=== PATIENT | female | born 1980 | race Caucasian/White ===

== ENCOUNTER 2016-12-16 09:09 | Outpatient (CLI) | payer OTHER ==
[2016-12-16 10:37] LABS: #Eosinphils 0.1 thou/uL (0.0-0.7); #Lymphocytes 2.3 thou/uL (1.20-3.40); #Monocytes 0.8 thou/uL (0.11-0.59); #Neutrophils 6.4 thou/uL (1.40-6.50); %Basophils 0.3 % (0.0-1.0); %Eosinophils 0.7 % (0.0-10.0); %Lymphocytes 24.2 % (21.0-51.0); %Monocytes 7.8 % (0.0-10.0); Hematocrit 41.3 % (36.0-47.0); Mean Platelet Volume 8.1 fL (7.4-10.4); Red Blood Cell (RBC) Count 4.32 mill/uL (4.20-5.40); White Blood Cell (WBC) Count 9.6 thou/uL (4.8-10.8)
[2016-12-16 11:02] LABS: ALT (SGPT) 31 U/L (8-55); AST (SGOT) 32 U/L (5-34); Alkaline Phosphatase 72 U/L (40-150); Anion Gap 10 mmol/L (10-20); BUN (Urea Nitrogen) 13 mg/dL (7.0-18.7); Bilirubin, Direct 0.3 mg/dL (0.1-0.3); Bilirubin, Total 0.5 mg/dL (0.2-1.2); Calc. Creatinine Clearance 0 mL/min (70-130); Calcium 9.1 mg/dL (7.8-10.44); Carbon Dioxide 28 mmol/L (22-29); Chloride 102 mmol/L (98-107); Estimated GFR-MDRD Greater than 90; Globulin 3.2 g/dL (2.4-3.5); Protein, Total 7.3 g/dL (6.0-8.3)
--- NOTE | 2016-12-16 14:05 | RAD ---
PA AND LATERAL VIEWS OF CHEST: Date: 12/16/16 HISTORY: Preoperative evaluation. FINDINGS: The heart size is normal. The lungs are well expanded without focal areas of consolidation, pneumoth orax, or pleural effusions. No acute osseous abnormalities are seen. IMPRESSION: No radiographic evidence of acute cardiopulmonary process. POS: [facility]
--- NOTE | 2016-12-19 15:59 | EKG ---
Test Reason : Blood Pressure : / mmHG Vent. Rate : 069 BPM Atrial Rate : 069 BPM P-R Int : 150 ms QRS Dur : 096 ms QT Int : 406 ms P-R-T Axes : 041 030 027 degrees QTc Int : 435 ms Normal sinus rhythm Cannot rule out Anterior infarct , age undetermined Abnormal ECG No previous ECGs available Confirmed by BRIANA GRANT ([id number]) on 12/19/2016 3:59:28 PM Referred By: LIZZETH Confirmed By:BRIANA GRANT
== END 2016-12-16 09:10 | disposition home or self-care (01) ==
LOC: LABBT 09:09
PROVIDERS: ATTEND Surgery
DX: Z01.818 Encounter for other preprocedural examination (principal); E66.01 Morbid (severe) obesity due to excess calories
CPT/HCPCS: 71020; 80053; 80076; 83036; 84703; 85025; 93005; 93010

== ENCOUNTER 2016-12-16 09:15 | Inpatient (IN) | payer OTHER ==
[2016-12-16 09:36] VITALS: BMI 42.9
[2016-12-26] MEDS ORDERED: Bupivacaine 0.25% HCL 30 ML VIAL ONE (06:37)
[2016-12-26] MEDS ORDERED: Lidocaine 2% w/Epinephrine 1:200K 20 ML VIAL ONE (06:37)
[2016-12-26] MEDS ORDERED: CEFAZOLIN/Water 2 GM/20 ML SYRINGE ONE (06:50)
[2016-12-26] MEDS ORDERED: Heparin 5,000 UNITS/ML VIAL ONE (06:50)
[2016-12-26] MEDS ORDERED: Ketorolac Tromethamine 30 MG/ML VIAL ONE (07:00)
[2016-12-26] MEDS ORDERED: Scopolamine 1.5 mg/72 hour Patch ONE (07:00)
[2016-12-26] MEDS ORDERED: Fentanyl 250 MCG/5 ML VIAL ONE (07:14)
[2016-12-26] MEDS ORDERED: Dexamethasone 20 MG/5 ML VIAL ONE (07:36)
[2016-12-26] MEDS ORDERED: Propofol 200 MG/20 ML VIAL ONE (07:36)
[2016-12-26] MEDS ORDERED: Lidocaine 2% PF 10 ML AMP (For Epidural Use) ONE (07:36)
[2016-12-26] MEDS ORDERED: Glycopyrrolate 0.2 MG/ML 5 ML SYRINGE ONE (07:36)
[2016-12-26] MEDS ORDERED: Esmolol 100 MG/10 ML VIAL ONE (07:36)
[2016-12-26] MEDS ORDERED: Promethazine HCl 25 MG/ML VIAL ONE (09:41)
[2016-12-26] MEDS ORDERED: Promethazine HCl 25 MG/ML VIAL IM PRN ×2 (09:48→11:27)
[2016-12-26] MEDS ORDERED: Ketorolac Tromethamine 30 MG/ML VIAL IVP PRN (09:48)
[2016-12-26] MEDS ORDERED: diphenhydrAMINE 50 MG/ML VIAL IVP PRN ×2 (09:48→11:27)
[2016-12-26] MEDS ORDERED: Fentanyl 5000 MCG/250 ML CADD IVPB PRN (09:48)
[2016-12-26] MEDS ORDERED: Zolpidem Tartrate 5 MG TAB PO PRN (09:48)
[2016-12-26] MEDS ORDERED: diphenhydrAMINE 25 MG CAP PO PRN (09:48)
[2016-12-26] MEDS ORDERED: Ondansetron HCl/PF 4 MG/2 ML Vial IVP PRN ×2 (09:48→11:27)
[2016-12-26] MEDS ORDERED: Naloxone HCl 0.4 mg/ml Vial IV PRN (09:48)
[2016-12-26] MEDS ORDERED: diphenhydrAMINE 50 MG/ML VIAL IM PRN (09:48)
[2016-12-26] MEDS ORDERED: Communication Order-Pharmacy FS SCH (10:00)
--- NOTE | 2016-12-26 11:21 | OP ---
DATE OF PROCEDURE: 12/26/2016 PREOPERATIVE DIAGNOSIS: Morbid obesity with body mass index of 44. POSTOPERATIVE DIAGNOSES: Morbid obesity with body mass index of 44 and paraesophageal hiatal hernia . PROCEDURES: 1. Laparoscopic sleeve gastrectomy. 2. Laparoscopic repair of paraesophageal hiatal hernia without fundoplication. 3. Esophagogastroduodenoscopy. SURGEON: Martin New M.D. ANESTHESIA: General. ESTIMATED BLOOD LOSS: Minimal. COMPLICATIONS: None. SPECIMEN: Stomach. FINDINGS: Small pairs of esophageal hiatal hernia. INDICATION: The patient is a 36-year-old female who presents a long history of being overweight. H er body mass index is 44. She has attended our preoperative seminar and preoperative education clas ses and met with the dietitian. She understands risks, benefits particular to sleeve as well as alt ernative procedures for weight loss. She gives consent. TECHNIQUE: The patient was taken to the operating room and placed supine on the table. After gener al anesthetic was obtained, arms and legs were double strapped to bariatric table. OG tube was used to decompress the stomach. Abdomen is prepped and draped in a sterile fashion. Left subcostal 5-m m Optiview trocar was placed in the usual fashion and high-flow pneumoperitoneum was obtained. The 12-mm ports were placed in the left and right of the umbilicus. A 5 mm port was placed in right sub costal. High-flow pneumoperitoneum was obtained. Subxiphoid 5-mm port is placed and then removed a nd a Nathansen was used to raise the liver off the GE junction. The patient was found to have a sma ll paraesophageal hiatal hernia. Short gastrics were taken down from midbody of stomach to the left renaldo of the diaphragm using LigaSure, was taken down to a distance of 6 cm proximal to the pylorus. All posterior adhesions were taken down. The left renaldo is fully dissected as was the angle of His , exposing a paraesophageal hiatal hernia. The bare area was opened in the gastrohepatic ligament. A replaced right hepatic artery was seen and excluded from the dissection. Circumferential dissect ion of the esophagus was performed into the mediastinum allowing the fundus to be brought back into the abdominal cavity under no tension. An Ethibond suture was used to close the crura posteriorly a fter the 38 bougie was placed. The tie knot system used to affix the suture. This closure of the e sophageal hiatus was not too tight. Multiple loads of an [place] stapling device were used to form the sleeve. The first was a green load fired up at a distance of 6 cm proximal to the pylorus angle d up towards the incisura. Multiple loads were then fired up along the bougie and stomach was compl etely transected at the angle of His. The stomach was removed from left abdominal incision, this fa scial defect using GraNee needle 0 Vicryl tie. EGD scope was passed via the esophagus, stomach to t he level of the duodenum without obstruction, no evidence of leakage of air through the staple line, no evidence of involvement of the GE junction with norma. No evidence of stricture at the incisu ra. EGD scope was used to decompress the stomach, pulled and removed. The Nathansen retractor tamie bradley under direct visualization without injury or bleeding. All port sites were infiltrated using lo mala anesthetic and removed without bleeding. Pneumoperitoneum was let down. Vicryl was used to vidhi se the fascial defect from left abdominal incisions. All incisions were irrigated and closed using 4-0 Monocryl and Dermabond. The patient was en route to recovery in stable condition. All instrume nt counts, needle counts, and lap counts were correct.
[2016-12-26] MEDS ORDERED: Dextrose 50% Abboject 50 ML SYRINGE SLOW IVP PRN (11:27)
[2016-12-26] MEDS ORDERED: Hydrocodone-Acetamin 15 ML UDCUP PO PRN (11:27)
[2016-12-26] MEDS ORDERED: Dextrose 5% in Water 1,000 ML IV PRN (11:27)
[2016-12-26] MEDS ORDERED: hydrALAZINE 20 MG/ML VIAL SLOW IVP PRN (11:27)
[2016-12-26] MEDS: D5 1/2 NS w/20 mEq KCL 1,000 ML IV SCH ×3 (12:37→23:48)
[2016-12-26] MEDS: Acetaminophen 1,000 MG in Premix Bag 1 BAG IVPB SCH ×3 (12:37→23:46)
[2016-12-26] MEDS ORDERED: Enoxaparin Sodium 40 MG/0.4 ML SYRINGE SC SCH (21:00)
[2016-12-27 05:40] LABS: #Basophils 0.1 thou/uL (0.0-0.2); #Lymphocytes 2.8 thou/uL (1.20-3.40); #Neutrophils 8.5 thou/uL (1.40-6.50); %Basophils 0.5 % (0.0-1.0); %Eosinophils 0.1 % (0.0-10.0); %Lymphocytes 22.5 % (21.0-51.0); %Monocytes 7.8 % (0.0-10.0); Hematocrit 41.1 % (36.0-47.0); Mean Platelet Volume 8.6 fL (7.4-10.4); Red Blood Cell (RBC) Count 4.24 mill/uL (4.20-5.40); White Blood Cell (WBC) Count 12.4 thou/uL (4.8-10.8)
[2016-12-27 06:04] LABS: Anion Gap 10 mmol/L (10-20); BUN (Urea Nitrogen) 4 mg/dL (7.0-18.7); Calc. Creatinine Clearance 226 mL/min (70-130); Calcium 8.7 mg/dL (7.8-10.44); Carbon Dioxide 24 mmol/L (22-29); Chloride 106 mmol/L (98-107); Estimated GFR-MDRD Greater than 90
[2016-12-27] MEDS: Pantoprazole 40 MG VIAL IVP SCH ×2 (07:32→07:36)
--- NOTE | 2016-12-27 08:33 | DIS ---
DATE OF ADMISSION: 12/26/2016 DATE OF DISCHARGE: 12/27/2016 ADMISSION DIAGNOSIS: Morbid obesity. DISCHARGE DIAGNOSIS: Morbid obesity. PROCEDURE: Sleeve gastrectomy by Dr. New without complication. CONDITION AT DISCHARGE: Improved. STAFF: Dr. New. Follow up with me in 2 weeks.
[2016-12-27 08:35] VITALS: BP 131/85; TEMP 98.8
[2016-12-27] MEDS ORDERED: Hydrocodone-Acetamin 15 ML UDCUP PO PRN (10:33)
--- NOTE | 2016-12-27 11:32 | RAD ---
SINGLE CONTRAST UPPER GI: History: 36-year-old female for barium swallow following gastric sleeve. Fluoroscopy time: 0.4 minutes with dose of 47.18 mGy*cm\S\2. FINDINGS: Patient was given 15 cc of Gastrografin orally. Contrast media passed through the esophagus and post -operative stomach. No evidence for obstruction or extravasation. IMPRESSION: Unremarkable 15 ml post gastric sleeve swallow. POS: [facility]
== END 2016-12-27 11:44 | disposition home or self-care (01) | DRG 621 ==
LOC: SURG A 12-26 06:01 → SURG B 12-26 10:24
PROVIDERS: ADMIT Surgery; ATTEND Surgery
PROC: 0DB64Z3 Excision of Stomach, Percutaneous Endoscopic Approach, Vertical (ICD-10-PCS; principal; 2016-12-26)
PROC: 0BQT4ZZ Repair Diaphragm, Percutaneous Endoscopic Approach (ICD-10-PCS; 2016-12-26)
DX: E66.01 Morbid (severe) obesity due to excess calories (principal); K44.9 Diaphragmatic hernia without obstruction or gangrene; Z68.41 Body mass index [BMI] 40.0-44.9, adult
CPT/HCPCS: 36415; 74241; 80048; 85025; 88307; 88312; 94760; C9113; J0131; J1100; J1644; J1650; J1885; J2001; J2550; J2704; J3010; S0020

== ENCOUNTER 2017-12-25 14:17 | Emergency (ER) | payer OTHER, SELFPAY ==
[2017-12-25 14:38] LABS: Bilirubin Small (Negative); Blood, Urine Negative (Negative); Clarity CLEAR (Clear); Glucose, Urine (Dipstick) Negative (Negative); Leukocyte Trace (Negative); Nitrite Negative (Negative); Protein, Urine (Dipstick) Negative (Neg-Trace); Specific Gravity, Urine 1.027 (1.002-1.036); pH, Urine 5.5 (5.0-9.0)
[2017-12-25 14:40] LABS: Pregnancy Test - Urine (BHCG) Negative (Negative); Pregu Control Background? CLEAR/WHITE (CLR/WHITE); Pregu Control Bar Appear? YES (CONTROL BAR); Specific Gravity 1.027 (1.002-1.036)
[2017-12-25 14:44] LABS: Bacteria/HPF None Seen HPF (None Seen); Hyaline Casts/LPF 0-3 HYALINE CAST LPF (0-3 Hyaline); Pathc Cast-AUWi Flag 0.58 (0-2.49); Squamous Epithelial 0-3 HPF (0-3); WBC/HPF 0-3 HPF (0-3)
[2017-12-25 14:45] LABS: RBC/HPF None Seen HPF (0-3)
[2017-12-25 14:50] LABS: #Lymphocytes 1.7 thou/uL (1.20-3.40); #Neutrophils 10.9 thou/uL (1.40-6.50); %Basophils 0.3 % (0.0-1.0); %Eosinophils 0.2 % (0.0-10.0); %Lymphocytes 12.3 % (21.0-51.0); %Monocytes 7.2 % (0.0-10.0); %Neutrophils 79.9 % (42.0-75.0); Hemoglobin 13.5 g/dL (12.0-16.0); Mean Corpuscular HGB CONC 32.5 g/dL (32.0-36.0); Mean Corpuscular Hemoglobin 31.5 pg (27.0-31.0); Mean Corpuscular Volume 96.7 fL (78.0-98.0); Mean Platelet Volume 8.6 fL (7.4-10.4); Platelet Count 245 thou/uL (130-400); RBC Distribution Width 12.2 % (11.5-14.5); Red Blood Cell (RBC) Count 4.31 mill/uL (4.20-5.40); White Blood Cell (WBC) Count 13.7 thou/uL (4.8-10.8)
[2017-12-25 14:57] LABS: BHCG - Serum Negative (NEGATIVE); Pregs Control Background? CLEAR/WHITE (CLR/WHITE); Pregs Control Bar Appear? YES (CONTROL BAR); Prothrombin Time 13.1 SEC (12.0-14.7)
[2017-12-25 14:58] LABS: PTT 27.4 SEC (22.9-36.1)
[2017-12-25 15:02] LABS: ALT (SGPT) 16 U/L (8-55); AST (SGOT) 28 U/L (5-34); Albumin 4.4 g/dL (3.5-5.0); Alkaline Phosphatase 78 U/L (40-150); Anion Gap 12 mmol/L (10-20); BUN (Urea Nitrogen) 12 mg/dL (7.0-18.7); Bilirubin, Total 0.7 mg/dL (0.2-1.2); CK (CPK) 53 U/L (29-168); Calc. Creatinine Clearance 0 mL/min (70-130); Calcium 9.5 mg/dL (7.8-10.44); Carbon Dioxide 26 mmol/L (22-29); Chloride 104 mmol/L (98-107); Estimated GFR-MDRD 85; Globulin 3.4 g/dL (2.4-3.5); Glucose 99 mg/dL (70-105); Lipase 33 U/L (8-78); Potassium 3.7 mmol/L (3.5-5.1); Protein, Total 7.8 g/dL (6.0-8.3); Sodium 138 mmol/L (136-145)
[2017-12-25 15:06] LABS: Troponin I Less than 0.010 ng/mL (< 0.028)
--- NOTE | 2017-12-25 15:53 | RAD ---
PORTABLE CHEST ONE VIEW: Date: 12-25-17 Time: 2:01 p.m. History: Nausea, vomiting, abdominal pain. FINDINGS: Heart size is normal. The lungs are well expanded without focal areas of consolidation, pneumothorace s, or pleural effusions. IMPRESSION: No radiographic evidence of acute cardiopulmonary process. POS: [facility]
--- NOTE | 2017-12-25 16:19 | ULT ---
RIGHT UPPER QUADRANT ULTRASOUND: Date: 12/25/17 HISTORY: 37-year-old female with right upper quadrant pain. FINDINGS: The liver demonstrates homogeneous echotexture without focal mass or intrahepatic ductal dilatation. There is gallbladder sludge and cholelithiasis without gallbladder wall thickening or pericholecystic fluid. The common duct measures 5.0 mm in diameter. Right kidney and pancreas are normal. No free fl uid is seen in Morison's pouch. IMPRESSION: Cholelithiasis and gallbladder sludge. POS: [facility]
[2017-12-25] MEDS ORDERED: Ondansetron PF 4 MG/2 ML Vial ONE ×2 (16:27→17:04)
[2017-12-25] MEDS ORDERED: Morphine 4 MG/ML VIAL ONE (16:29)
[2017-12-25] MEDS ORDERED: Bupivacaine/Epinephrine 0.25% 30 ML VIAL ONE (16:44)
[2017-12-25] MEDS ORDERED: MEROPENEM 1 GM/50 ML 1 GM in Premix Bag 1 BAG IVPB SCH (16:45)
[2017-12-25] MEDS ORDERED: PROPOFOL 200 MG/20 ML VIAL ONE (17:04)
[2017-12-25] MEDS ORDERED: Lidocaine 1% PF 5 ML VIAL ONE (17:04)
[2017-12-25] MEDS ORDERED: Dexamethasone 20 MG/5 ML VIAL ONE (17:04)
[2017-12-25] MEDS ORDERED: Glycopyrrolate 0.2 MG/ML 5 ML SYRINGE ONE (17:04)
[2017-12-25] MEDS ORDERED: Fentanyl 100 MCG/2 ML VIAL ONE ×2 (17:09→18:44)
--- NOTE | 2017-12-25 17:25 | HP ---
CHIEF COMPLAINT: Right upper quadrant pain. HISTORY OF PRESENT ILLNESS: This is a 37-year-old female with a history of gastric sleeve 1 year ago , who presents with a history of right upper quadrant pain that is intermittent, associated with righ t subscapular pain occurs after heavier meals. The pain has been more severe since she had a little bit of fried fish yesterday evening. Pain is described as sharp, 08/10, radiates around to the right back, associated with nausea that is constant. No vomiting. Denies history of pancreatitis or know n gallbladder disease, but she has had attacks of this that were more mild in the past. LFTs are nor mal as well as lipase, but ultrasound shows gallstones, normal common bile duct. PAST MEDICAL HISTORY: Includes ADHD, morbid obesity. PAST SURGICAL HISTORY: Laparoscopic sleeve gastrectomy. MEDICATIONS TAKEN DAILY: None. ALLERGIES: No known drug allergies. SOCIAL HISTORY: No smoking, alcohol, or other drugs. REVIEW OF SYSTEMS: Ten-system review of systems is otherwise negative unless described above. PHYSICAL EXAMINATION: HEENT: Sclerae anicteric. Oropharynx clear. NECK: No lymphadenopathy. CHEST: Clear. HEART: Regular rate and rhythm. ABDOMEN: Soft. Tender right upper quadrant, localized guarding. No rebound. EXTREMITIES: No ischemia or edema to extremities. LABORATORY AND X-RAY FINDINGS: Liver function tests normal. Ultrasound shows gallstones. ASSESSMENT: Acute cholecystitis with gallstones on exam. PLAN: Laparoscopic cholecystectomy. Risks, benefits, alternatives were discussed. She gives consen t. We will do this today.
[2017-12-25] MEDS ORDERED: HYDROcodone/Acetaminophen 5/325 mg Tablet ONE (19:11)
--- NOTE | 2017-12-26 02:29 | OP ---
DATE OF SERVICE: 12/25/2017 PREOPERATIVE DIAGNOSIS: Acute cholecystitis. POSTOPERATIVE DIAGNOSIS: Acute cholecystitis. PROCEDURE: Laparoscopic cholcystectomy. SURGEON: Martin New M.D. ANESTHESIA: General. ESTIMATED BLOOD LOSS: Minimal. COMPLICATIONS: None. SPECIMEN: Gallbladder. FINDINGS: Cholecystitis. PROCEDURE IN DETAIL: The patient was taken to the Operating Room and laid supine on the Operating Ro om table. After general anesthetic was obtained, the abdomen was prepped and draped in a sterile fash ion. A curved incision was made below the umbilicus. Cautery was used to dissect down to the umbilica l fascia. Umbilical fascia was incised and held up using a Angy. The abdominal cavity was entered u sing a Keeley clamp. Holding stitch of Vicryl was placed on each side of the fascia. George trocar was placed. High-flow pneumoperitoneum was obtained. An upper midline 5-mm port and two right upper quad rant 5-mm ports were placed under direct camera visualization. The gallbladder was retracted from the gallbladder fossa. The peritoneum of the gallbladder was opened anteriorly and posteriorly. The crit ical view triangle was seen showing only the cystic duct and cystic artery branching from medial to l ateral. There were no other branching structures. Two clips were placed proximally on the cystic duct and one laterally. It was cut using laparoscopic scissors. The cystic artery was taken in the same w ay. Electrocautery was then used to dissect the gallbladder out of the gallbladder fossa. The gallbla dder was placed in an Endo catch bag and brought out through the George. There was no bleeding or thelma e in the liver bed. The cystic duct stump and cystic artery stump were intact without evidence of ext ravasation or bleeding. All port sites were infiltrated using local anesthesia. All ports were remove d under camera visualization. Pneumoperitoneum was let down. The Vicryl was used to close the fascial defect below the umbilicus. All incisions were irrigated and closed using 4-0 Monocryl and DermaBond . The patient was en route to Recovery in stable condition. All instrument counts, needle counts and lap counts were correct.
== END 2017-12-25 16:50 | disposition admitted as inpatient to this hospital (09) ==
LOC: ERS 14:17
DX: K81.0 Acute cholecystitis (principal); F90.9 Attention-deficit hyperactivity disorder, unspecified type; Z79.899 Other long term (current) drug therapy
CPT/HCPCS: 71045; 76705; 80053; 81003; 81015; 81025; 82553; 83690; 84484; 84703; 85025; 85610; 85730; 88304; 93005; 96360; 96374; J1100; J2001; J2185; J2270; J2405; J2704; J3010

== ENCOUNTER 2020-01-07 13:20 | Outpatient (CLI) | payer OTHER ==
--- NOTE | 2020-01-07 14:03 | MMO ---
Right Breast MAMMO Unilat Diag DDI RT+MENG. CLINICAL HISTORY: Patient is 39 years old and is seen for diagnostic exam. The patient has the following family history of breast cancer: great grandmother. VIEWS: The views performed were: right craniocaudal with tomosynthesis; right mediolateral oblique with tomosynthesis; and right mediolateral with tomosynthesis. FILMS COMPARED: The present examination has been compared to a prior imaging study performed at [facility] on 12/18/2019. This study has been interpreted with the assistance of computer-aided detection. MAMMOGRAM FINDINGS: There are scattered fibroglandular densities. There is a focal asymmetry seen in the upper-outer region of the right breast. The nodular appearance on prior exam compressed out There are no suspicious masses, suspicious calcifications, or new areas of architectural distortion. IMPRESSION: THERE IS NO MAMMOGRAPHIC EVIDENCE OF MALIGNANCY. A ROUTINE FOLLOW-UP MAMMOGRAM IN 1 YEAR IS RECOMMENDED. THE RESULTS OF THIS EXAM WERE SENT TO THE PATIENT. ACR BI-RADS Category 2 - Benign finding MAMMOGRAPHY NOTE: 1. A negative mammogram report should not delay a biopsy if a dominant of clinically suspicious mass is present. 2. Approximately 10% to 15% of breast cancers are not detected by mammography. 3. Adenosis and dense breasts may obscure an underlying neoplasm. Reported by: ROBERT FREDERICK MD Electonically Signed: [id number]
== END 2020-01-07 13:21 | disposition home or self-care (01) ==
LOC: BICMAMMO 13:20
PROVIDERS: ATTEND Obstetrics & Gynecology
DX: R92.2 Inconclusive mammogram (principal)
CPT/HCPCS: G0279